=== PATIENT | female | born 1990 | race Caucasian/White ===

== ENCOUNTER 2016-09-20 19:54 | Emergency (ER) | payer OTHER | END 2016-09-20 22:09 | disposition home or self-care (01) | LOC: FER 19:54 | DX: J40 Bronchitis, not specified as acute or chronic (principal); F17.210 Nicotine dependence, cigarettes, uncomplicated | CPT/HCPCS: 87804; 87899; 99283 ==

== ENCOUNTER 2016-10-12 21:21 | Emergency (ER) | payer OTHER | END 2016-10-12 22:12 | disposition home or self-care (01) | LOC: FER 21:21 | DX: M17.11 Unilateral primary osteoarthritis, right knee (principal); M25.562 Pain in left knee; E78.5 Hyperlipidemia, unspecified; F17.210 Nicotine dependence, cigarettes, uncomplicated | CPT/HCPCS: 99283 ==

== ENCOUNTER 2021-08-31 15:36 | Emergency (ER) | payer OTHER ==
[~2021-08-31 15:36] MED LIST: IBUPROFEN800 MG PO; METHYLPREDNISOLO4 M1 PO; NAPROXEN500 MG PO; SILVADENE20 GM TOP; TOPIRAMATE50 MG PO; VOLTAREN **OUT75 MG PO
== END 2021-08-31 17:42 | disposition home or self-care (01) ==
LOC: FER 15:36
DX: S61.217A Laceration without foreign body of left little finger without damage to nail, initial encounter (principal); F17.210 Nicotine dependence, cigarettes, uncomplicated; Z23 Encounter for immunization; W45.8XXA Other foreign body or object entering through skin, initial encounter; Y92.89 Other specified places as the place of occurrence of the external cause; Y99.0 Civilian activity done for income or pay
CPT/HCPCS: 90471; 90715; 99282